=== PATIENT | male | born 1980 | race African-American/Black ===

== ENCOUNTER 2021-02-01 16:48 | Emergency (ER) | payer BC ==
[2021-02-01 17:29] VITALS: BP 130/84; PULSE 80; TEMP 98.4; BMI 28.5
[2021-02-02 23:06] LABS: SARS-CoV-2 NAA Detected (Not Detected)
== END 2021-02-01 19:00 | disposition home or self-care (01) ==
LOC: JER 16:48
DX: R50.9 Fever, unspecified (principal); R05.9 Cough, unspecified; M79.10 Myalgia, unspecified site
CPT/HCPCS: 99283-25; C9803; U0003; U0005